=== PATIENT | male | born 1940 | race Caucasian/White ===

== ENCOUNTER 2016-09-25 18:50 | Emergency (ER) | payer OTHER ==
[~2016-09-25] VITALS: Ht 167.6 cm; Wt 73.8 kg
[~2016-09-25 18:50] MED LIST: ASPEC81 PO; CLB200 PO; CYAN100020 PO; HYDR-5688 PO
[2016-09-25 19:01] VITALS: Ht 167.6 cm; Wt 73.8 kg
[2016-09-25] MEDS ORDERED: SODIUM CHLORIDE 0.9% 1000ML 500 ML IV STA (19:31)
[2016-09-25] MEDS ORDERED: ONDANSETRON INJ 2 MG/ML 2 ML VIAL IV STA (19:31)
--- NOTE | 2016-09-25 20:00 | DIAGNOSTIC IMAGING REPORT ---
CHEST ONE VIEW PORTABLE CLINICAL HISTORY: Altered mental status. Weakness. COMPARISON STUDY: No previous studies for comparison. FINDINGS: The cardiac and mediastinal contours are normal. There is no evidence of focal pulmonary consolidation. There is no evidence of failure. No pleural effusions are visualized.[ IMPRESSION: No active disease in the chest. Electronically signed by: Edison Mahoney M.D. 09/25/2016 7:59 PM Dictated Date/Time: 09/25/2016 7:58 PM
--- NOTE | 2016-09-25 20:01 | DIAGNOSTIC IMAGING REPORT ---
PELVIS 1 OR 2 VIEW ROUTINE CLINICAL HISTORY: Hip pain. COMPARISON STUDY: 05/13/2015 FINDINGS: There is a total left hip arthroplasty. There is a small amount of heterotopic ossification present. There are mild to moderate degenerative changes in the right hip. There are no acute fractures or dislocations. Degenerative changes are present within the SI joints. IMPRESSION: Postsurgical change. No acute fractures. Degenerative change. Electronically signed by: Edison Mahoney M.D. 09/25/2016 8:00 PM Dictated Date/Time: 09/25/2016 7:59 PM
[2016-09-25 20:15] LABS: BASO % 0.1 %; BASO ABS # 0.01 K/uL (0-0.2); COMPLETE YES; EOS % 0.1 %; HEMATOCRIT 49.8 % (42-52); IG% 0.2 %; LYMPH % 20.3 %; LYMPH ABS # 1.76 K/uL (1.2-3.4); MEAN CELL VOLUME 92.9 fL (80-100); MEAN CORPUSCULAR HEMOGLOBIN 32.1 pg (25-34); MEAN CORPUSCULAR HGB CONC 34.5 g/dl (32-36); MEAN PLATELET VOLUME 9.9 fL (7.4-10.4); MONO % 3.6 %; NEUT % 75.7 %; PLATELET COUNT 288 K/uL (130-400); RED BLOOD COUNT 5.36 M/uL (4.7-6.1); WHITE BLOOD COUNT 8.67 K/uL (4.8-10.8)
--- NOTE | 2016-09-25 20:40 | DIAGNOSTIC IMAGING REPORT ---
CT HEAD WITHOUT CONTRAST (CT) CLINICAL HISTORY: Altered mental status. Weakness. COMPARISON STUDY: No previous studies for comparison. TECHNIQUE: Axial CT of the brain is performed from the vertex to the skull base. IV contrast was not administered for this examination. CT DOSE: 537.48 mGy.cm FINDINGS: No intra or extra-axial mass lesions are visualized. There is no CT evidence of acute cortical infarction. There is no evidence of midline shift. There is no acute hemorrhage. No calvarial fractures are visualized. There are patchy white matter hypodensities likely on a small vessel basis. There is no evidence of pathologic ventricular dilatation. There is no evidence of acute sinusitis IMPRESSION: No acute intracranial findings Electronically signed by: Edison Mahoney M.D. 09/25/2016 8:39 PM Dictated Date/Time: 09/25/2016 8:38 PM
[2016-09-25 21:24] LABS: ALB/GLOB RATIO 1.3 (0.9-2); ALKALINE PHOSPHATASE 66 U/L (45-117); ALT/SGPT 36 U/L (12-78); AST/SGOT 29 U/L (15-37); BLOOD UREA NITROGEN 16 mg/dl (7-18); BUN/CREATININE RATIO 17.1 (10-20); CALCIUM 9.2 mg/dl (8.5-10.1); CARBON DIOXIDE 29 mmol/L (21-32); CHLORIDE 106 mmol/L (98-107); CREATININE 0.95 mg/dl (0.60-1.40); GLUCOSE 111 mg/dl (70-99); MAGNESIUM 2.2 mg/dl (1.8-2.4); POTASSIUM 4.7 mmol/L (3.5-5.1); SODIUM 142 mmol/L (136-145)
--- NOTE | 2016-09-25 21:24 | EMERGENCY ROOM VISIT NOTE ---
History Report prepared by Eduard: Georgie Orozco Under the Supervision of: Dr. Oniel Head M.D. First contact with patient: 19:19 Chief Complaint: NAUSEA Stated Complaint: WEAKNESS,NAUSEA, DIFFICULTY WALKING History of Present Illness The patient is a 75 year old male who presents to the Emergency Room with complaints of persistent leg tightness starting 4 days ago. He woke up at 0200 to use the bathroom and found he was unable to walk for 15 minutes. He had the same symptoms again 2 days ago and again today. He is normally a very active person who works out regularly. For the last 2 months, he has had some difficulty walking at times. He feels woozy and his legs get tight from his knees up to his hips. This makes it difficult for him to walk. It has happened more often the past 4 days. He reports nausea which has caused him to eat less. He denies any headache, fever, cough, SOB, chest pain, diarrhea, or urinary symptoms. He is not having any problems with his upper extremities. He denies any fall or injury. Source of History: patient Onset: 4 days ago Position: leg (bilateral) Quality: other (tightness) Timing: other (persistent) Associated Symptoms: + nausea, No SOB, No chest pain, No cough, No diarrhea , No fevers, No headache, No urinary symptoms Note: Pt reports feeling woozy, difficulty walking. Review of Systems See HPI for pertinent positives & negatives. A total of 10 systems reviewed and were otherwise negative. Past Medical & Surgical Medical Problems: (1) Abdominal pain (2) Arthritis of left hip (3) Hypopotassemia (4) Pancreatitis (5) Pancreatitis (6) Spondylisthesis Surgical Problems: (1) S/P hip replacement Family History Cancer Social History Smoking Status: Former Smoker Alcohol Use: none Marital Status: Housing Status: lives with family Occupation Status: retired Current/Historical Medications Scheduled Ondasetron Odt (Zofran Odt), 4 MG SL Q6H Allergies Coded Allergies: No Known Allergies (Unverified , 09/25/16) Physical Exam Vital Signs Date Time Temp Pulse Resp B/P Pulse Ox O2 Delivery O2 Flow Rate FiO2 09/25/16 22:30 36.3 59 18 141/83 97 09/25/16 19:01 36.3 55 20 173/91 99 Room Air Physical Exam GENERAL: Patient is in no acute distress. HEENT: No acute trauma, normocephalic atraumatic, mucous membranes moist, no nasal congestion, no scleral icterus. NECK: No stridor, no adenopathy, no meningismus, trachea is midline. LUNGS: Clear to auscultation bilaterally, no wheeze, no rhonchi, breath sounds equal. HEART: Without murmurs gallops or rubs, regular rate and rhythm. ABDOMEN: Soft, nontender, bowel sounds positive, no hernias, no peritonitis. EXTREMITIES: No cyanosis or edema, full range of motion of all the joints without pain or difficulty, no signs for acute trauma. NEUROLOGIC: Oriented x 3, no acute motor or sensory deficits, no focal weakness. 2/4 patellar reflexes bilaterally, no cerebellar deficits or pronator drift. SKIN: No rash, no jaundice, no diaphoresis. Medical Decision & Procedures ER Provider Diagnostic Interpretation: X ray results and stated below per my interpretation and radiologist interpretation. Other radiology results and stated below per my review and radiologist interpretation: CHEST ONE VIEW PORTABLE CLINICAL HISTORY: Altered mental status. Weakness. COMPARISON STUDY: No previous studies for comparison. FINDINGS: The cardiac and mediastinal contours are normal. There is no evidence of focal pulmonary consolidation. There is no evidence of failure. No pleural effusions are visualized.[ IMPRESSION: No active disease in the chest. Electronically signed by: Edison Mahoney M.D. 09/25/2016 7:59 PM Dictated Date/Time: 09/25/2016 7:58 PM PELVIS 1 OR 2 VIEW ROUTINE CLINICAL HISTORY: Hip pain. COMPARISON STUDY: 05/13/2015 FINDINGS: There is a total left hip arthroplasty. There is a small amount of heterotopic ossification present. There are mild to moderate degenerative changes in the right hip. There are no acute fractures or dislocations. Degenerative changes are present within the SI joints. IMPRESSION: Postsurgical change. No acute fractures. Degenerative change. Electronically signed by: Edison Mahoney M.D. 09/25/2016 8:00 PM Dictated Date/Time: 09/25/2016 7:[address] HEAD WITHOUT CONTRAST (CT) CLINICAL HISTORY: Altered mental status. Weakness. COMPARISON STUDY: No previous studies for comparison. TECHNIQUE: Axial CT of the brain is performed from the vertex to the skull base. IV contrast was not administered for this examination. CT DOSE: 537.48 mGy.cm FINDINGS: No intra or extra-axial mass lesions are visualized. There is no CT evidence of acute cortical infarction. There is no evidence of midline shift. There is no acute hemorrhage. No calvarial fractures are visualized. There are patchy white matter hypodensities likely on a small vessel basis. There is no evidence of pathologic ventricular dilatation. There is no evidence of acute sinusitis IMPRESSION: No acute intracranial findings Electronically signed by: Edison Mahoney M.D. 09/25/2016 8:39 PM Dictated Date/Time: 09/25/2016 8:38 PM Laboratory Results 09/25/16 19:55 Red Blood Count 5.36, Mean Corpuscular Volume 92.9, Mean Corpuscular Hemoglobin 32.1, Mean Corpuscular Hemoglobin Concent 34.5, Mean Platelet Volume 9.9, Neutrophils (%) (Auto) 75.7, Lymphocytes (%) (Auto) 20.3, Monocytes (%) (Auto) 3.6, Eosinophils (%) (Auto) 0.1, Basophils (%) (Auto) 0.1, Neutrophils # (Auto) 6.56, Lymphocytes # (Auto) 1.76, Monocytes # (Auto) 0.31, Eosinophils # (Auto) 0.01, Basophils # (Auto) 0.01 09/25/16 19:55 Test 09/25/16 19:55 09/25/16 21:30 White Blood Count 8.67 K/uL (4.8-10.8) Red Blood Count 5.36 M/uL (4.7-6.1) Hemoglobin 17.2 g/dL (14.0-18.0) Hematocrit 49.8 % (42-52) Mean Corpuscular Volume 92.9 fL (80-100) Mean Corpuscular Hemoglobin 32.1 pg (25-34) Mean Corpuscular Hemoglobin Concent 34.5 g/dl (32-36) Platelet Count 288 K/uL (130-400) Mean Platelet Volume 9.9 fL (7.4-10.4) Neutrophils (%) (Auto) 75.7 % Lymphocytes (%) (Auto) 20.3 % Monocytes (%) (Auto) 3.6 % Eosinophils (%) (Auto) 0.1 % Basophils (%) (Auto) 0.1 % Neutrophils # (Auto) 6.56 K/uL (1.4-6.5) Lymphocytes # (Auto) 1.76 K/uL (1.2-3.4) Monocytes # (Auto) 0.31 K/uL (0.11-0.59) Eosinophils # (Auto) 0.01 K/uL (0-0.5) Basophils # (Auto) 0.01 K/uL (0-0.2) RDW Standard Deviation 42.8 fL (36.4-46.3) RDW Coefficient of Variation 12.5 % (11.5-14.5) Immature Granulocyte % (Auto) 0.2 % Immature Granulocyte # (Auto) 0.02 K/uL (0.00-0.02) Anion Gap 7.0 mmol/L (3-11) Est Creatinine Clear Calc Drug Dose 61.5 ml/min Estimated GFR () 91.0 Estimated GFR (Non- 78.5 BUN/Creatinine Ratio 17.1 (10-20) Calcium Level 9.2 mg/dl (8.5-10.1) Magnesium Level 2.2 mg/dl (1.8-2.4) Total Bilirubin 0.7 mg/dl (0.2-1) Aspartate Amino Transf (AST/SGOT) 29 U/L (15-37) Alanine Aminotransferase (ALT/SGPT) 36 U/L (12-78) Alkaline Phosphatase 66 U/L (45-117) Total Creatine Kinase 140 U/L (39-308) Troponin I < 0.015 ng/ml (0-0.045) Total Protein 7.9 gm/dl (6.4-8.2) Albumin 4.4 gm/dl (3.4-5.0) Globulin 3.5 gm/dl (2.5-4.0) Albumin/Globulin Ratio 1.3 (0.9-2) Thyroid Stimulating Hormone (TSH) 1.990 uIu/ml (0.300-4.500) Chemistry Specimen Hemolysis Urine Color YELLOW Urine Appearance CLOUDY (CLEAR) Urine pH 8.5 (4.5-7.5) Urine Specific [place] 1.012 (1.000-1.030) Urine Protein NEG (NEG) Urine Glucose (UA) NEG (NEG) Urine Ketones NEG (NEG) Urine Occult Blood NEG (NEG) Urine Nitrite NEG (NEG) Urine Bilirubin NEG (NEG) Urine Urobilinogen NEG (NEG) Urine Leukocyte Esterase TRACE (NEG) Urine WBC (Auto) 1-5 /hpf (0-5) Urine RBC (Auto) 0-4 /hpf (0-4) Urine Hyaline Casts (Auto) 0 /lpf (0-5) Urine Epithelial Cells (Auto) 5-10 /lpf (0-5) Urine Bacteria (Auto) NEG (NEG) Urine dip is negative for infection or blood. Laboratory results reviewed by me. Medications Administered Medications (Trade) Dose Ordered Sig/Ant Route Start Time Stop Time Status Last Admin Dose Admin Sodium Chloride (Nss 1000ml) 500 ml @ 999 mls/hr Q31M STAT IV 09/25/16 19:31 09/25/16 20:01 DC 09/25/16 19:31 999 MLS/HR Ondansetron HCl (Zofran Inj) 4 mg NOW STAT IV 09/25/16 19:31 09/25/16 19:33 DC 09/25/16 20:04 4 MG Ondansetron HCl (ZOFRAN ODT 4MG Home Pack) 1 homepack UD ONCE PO 09/25/16 22:15 09/25/16 22:16 DC 09/25/16 22:15 1 HOMEPACK ECG Indication: nausea Rate (beats per minute): 57 Rhythm: sinus bradycardia Findings: 1st degree AV block, no acute ischemic change, no ectopy ED Course 1924: The patient was evaluated in room A10. A complete history and physical exam was performed. 1930: Zofran Inj 4 mg IV, NSS 500 ml @ 999 mls/hr IV. 2147: I reevaluated the patient. He is resting comfortably. I discussed the results and treatment plan with. He is happy to know the results of his tests. The human services case manager will set up rehab for him next week. He verbalized understanding and agreement. He will be discharged home. 2214: Ondansetron HCl 1 homepack PO. Medical Decision Differential diagnoses: dehydration, electrolyte imbalance, anemia, thyroid disorder, cardiac ischemia, UTI, stroke. There is no leukocytosis or concerning anemia. No significant electrolyte abnormality, kidney failure, hepatitis. The patient appears to be in a euthyroid state. Pelvis film shows no fracture or issues with the left hip prosthesis. Chest x-ray does not show pneumonia or CHF. EKG shows a sinus bradycardia, no acute ischemia. Cardiac enzyme testing times one is not consistent with acute cardiac injury. Brain CT shows no acute bleed or mass effect. Urinalysis does not show evidence for infection. The patient received IV saline, IV Zofran, he is doing well. On exam, there is no evidence for focal neurologic deficit. He seems to be walking well. His reflexes are intact in the lower extremities. I did have case management talk with the patient. They are setting up physical rehabilitation for him. He needs some guidance on how to exercise and likely needs some stretching. The patient was given Zofran for nausea, he was encouraged to rest and not to overdo it for the next couple days. He may be exercising too much in fact. Patient was encouraged to return here if worsening. Impression Primary Impression: Nausea Additional Impression: Weakness Scribe Attestation The scribe's documentation has been prepared under my direction and personally reviewed by me in its entirety. I confirm that the note above accurately reflects all work, treatment, procedures, and medical decision making performed by me. Departure Information Dispostion Home / Self-Care Prescriptions Ondasetron Odt (ZOFRAN ODT) 4 Mg Tab 4 MG SL Q6H for Nausea, #12 TAB Prov: Oniel Head M.D. 09/25/16 Referrals Aimee Shelley C.R.NAlfonzoPAlfonzo (PCP) Forms HOME CARE DOCUMENTATION FORM, IMPORTANT VISIT INFORMATION Patient Instructions [facility] Additional Instructions consider rehab as discussed--the human services case manager here has helped arrange this lab testing today was all ok stay well hydrated and rest return if worsening take it easy for a few days as we discussed use zofran 1 tab every 6 hours as needed for nausea lab testing and imaging today was all ok Problem Qualifiers
[2016-09-25 21:56] LABS: URINE APPEARANCE CLOUDY (CLEAR); URINE BILIRUBIN NEG (NEG); URINE COLOR YELLOW; URINE NITRITE NEG (NEG); URINE PH 8.5 (4.5-7.5); URINE SPECIFIC GRAVITY 1.012 (1.000-1.030); UROBILINOGEN NEG (NEG); ZZUR CULT IF INDIC CLEAN CATCH NO
[2016-09-25 21:57] LABS: MANUAL MICROSCOPIC REQUIRED? NO; REVIEW REQ? NO
[2016-09-25] MEDS ORDERED: ONDA4TAB10 SL (22:00)
[2016-09-25] MEDS ORDERED: ONDANSETRON HOME PACK 4MG OD TAB PO ONE (22:15)
[2016-09-25 22:30] VITALS: BP 141/83; PULSE 59; TEMP 36.3; O2SAT 97
== END 2016-09-25 22:31 | disposition home or self-care (01) ==
LOC: C.EDB 18:52 → C.EDA 22:31
DX: R53.1 Weakness (principal); R11.0 Nausea; I44.0 Atrioventricular block, first degree; K86.1 Other chronic pancreatitis; M16.12 Unilateral primary osteoarthritis, left hip; Z96.649 Presence of unspecified artificial hip joint; Z87.891 Personal history of nicotine dependence; Z80.9 Family history of malignant neoplasm, unspecified

== ENCOUNTER 2016-10-29 19:16 | Emergency (ER) | payer OTHER ==
[~2016-10-29] VITALS: Ht 167.6 cm; Wt 74.7 kg
[~2016-10-29 19:16] MED LIST changes: -ASPEC81 PO; -CLB200 PO; -CYAN100020 PO; -HYDR-5688 PO; +ONDA4TAB10 SL
[2016-10-29 19:18] VITALS: Ht 167.6 cm; Wt 74.7 kg
[2016-10-29] MEDS ORDERED: LIDOCAINE/EPINEPHRINE 1% 20 ML VIAL INFIL ONE (19:45)
--- NOTE | 2016-10-29 19:51 | EMERGENCY ROOM VISIT NOTE ---
ED Visit Note First contact with patient: 19:45 This Patient was discussed with the physician benefits assistant, Magali Shannon PA-C. The pertinent historical and physical exam findings were confirmed. I agree with the studies ordered and with the interpretations of these studies. I agree with the disposition and care plan.
[2016-10-29] MEDS ORDERED: DIPHTHERIA/TETANUS/PERTUSSIS 0.5 ML SYR/VIAL IM. ONE (20:00)
[2016-10-29] MEDS ORDERED: CIPR-255 PO (20:23)
--- NOTE | 2016-10-29 20:25 | EMERGENCY ROOM VISIT NOTE ---
ED Visit Note First contact with patient: 19:36 CHIEF COMPLAINT: Right foot puncture wound. HISTORY OF PRESENT ILLNESS: This 75-year-old male patient presents to the emergency department approximately 3 hours after stepping on a nail and receiving a puncture wound to the right foot. Patient states she was walking, and stepped on a marie wood board, which had a nail running through it. He was wearing sneakers and states the nail punctured through his sneaker, sock, and foot. He states the nail was "very long". Patient states the nail was very deep into the foot. The bleeding has stopped. Denies weakness or numbness of the right foot, toes, ankle. The patient rates the pain as burning and 3/10. The patient denies any other injuries. The patient's Tetanus shot is not up to date. REVIEW OF SYSTEMS: A 6 system review of systems was completed with positives and pertinent negatives listed in the HPI. ALLERGIES: None MEDICATIONS: None PMH: None SOCIAL HISTORY: Pt. lives locally with his family. He denies alcohol, drug, tobacco use. PHYSICAL EXAM: Vital Signs: Reviewed Nurse's notes, vital signs stable. GENERAL : 75-year-old male, in no acute distress, well-developed, well-nourished. SKIN : There is a 0.5 cm long puncture wound on the plantar aspect of the foot. The edges gape apart with traction. There is no foreign material in the wound and it looks clean. There is no active bleeding. No deep structures such as tendons , bones, or significant blood vessels are seen in the base of the wound. Normal strength and movement of the bright foot, toes, ankle. Capillary refill less than 2 seconds. Normal sensation to light and sharp touch. EMERGENCY DEPARTMENT COURSE: I examined the patient. Verbal consent was obtained to perform the procedure. Using sterile technique the wound was cleansed with Betadine. The area was sterilely draped. 2 ml of 1% buffered lidocaine with epinephrine was used to anesthetize the puncture wound on the plantar aspect of right foot. Once the patient was anesthetized, the wound was copiously irrigated under pressure with sterile saline. The wound was explored and was as described above. The laceration was repaired using 1 simple interrupted 4-0 nylon sutures with the wound edges being well approximated. The patient tolerated the procedure well. Hemostasis was achieved. The area was cleaned with sterile saline and dressed with bacitracin ointment and bandage. The patient was given Tdap immunization. The patient was discharged home in good condition. DIAGNOSIS: Right foot puncture wound DISCHARGE INSTRUCTIONS & TREATMENT: Keep wound clean and dry. Do not allow any crusting or dried blood to accumulate on sutures. If this occurs, use a 1:1 solution of hydrogen peroxide/water on a Q-tip to clean the wound. Use an antibiotic ointment for 3-4 days, then let wound dry. Suture removal in 12-14 days. Return sooner for any signs of infection (increasing redness, swelling, drainage). Ice and elevate for swelling and pain. Ibuprofen 600 mg and Tylenol 1000 mg every 6 hrs for pain. Keep covered when in sun until sutures removed then SPF 50 or higher for one year. Vitamin E oil if desired two weeks after suture removal for reduction of scar. Problem List Medical Problems: (1) Abdominal pain Status: Resolved (2) Hypopotassemia Status: Resolved (3) Pancreatitis Status: Resolved (4) Pancreatitis Status: Resolved (5) Spondylisthesis Status: Chronic Surgical Problems: (1) S/P hip replacement Status: Resolved Current/Historical Medications Scheduled Ciprofloxacin Hcl (Cipro), 500 MG PO BID Allergies Coded Allergies: No Known Allergies (Unverified , 10/29/16) Vital Signs Date Time Temp Pulse Resp B/P (MAP) Pulse Ox O2 Delivery O2 Flow Rate FiO2 10/29/16 20:14 69 18 155/82 96 Room Air 10/29/16 19:18 36.7 74 20 164/80 97 Room Air Medications Administered Medications (Trade) Dose Ordered Sig/Ant Route Start Time Stop Time Status Last Admin Dose Admin Diphtheria/ Pertussis/Tetanus Vacc (Adacel Inj) 0.5 ml ONCE ONCE IM. 10/29/16 20:00 10/29/16 20:01 DC 10/29/16 20:13 0.5 ML Departure Information Impression Primary Impression: Puncture wound of foot without foreign body Dispostion Home / Self-Care Condition GOOD Prescriptions Ciprofloxacin Hcl (CIPRO) 500 Mg Tab 500 MG PO BID for 10 Days, #20 TAB Prov: Magali Shannon PA-C 10/29/16 Referrals Aimee Shelley C.R.N.PAlfonzo (PCP) Patient Instructions My [facility] Additional Instructions You have received 1 suture on your right foot. These sutures are NOT dissolvable and WILL need to be removed by a health care provider in 12-14 days. You can return to the Emergency Department or contact your Primary Care Provider to have the sutures removed. You also received a tetanus vaccination today. You may experience some localized redness, swelling, discomfort from the vaccination. If he experienced high fever, increased redness, swelling, severe pain, he should follow up in the emergency department for further evaluation. Proper wound care is essential for adequate wound healing and infection prevention. You can shower and clean the wound with soap and water. Do not scour over the wound, pat dry with a towel. Do not submerse the wound (i.e. bathe or dish wash) until the sutures have been removed. You can use an antibiotic ointment with a dressing over the wound for the next 3-4 days. After this time you may leave the wound dry and open to the air. If crust develops over the wound you can use a Q-tip to apply a 1:1 peroxide:water solution to clean the wound. Look for signs of infection of the wound including: increased pain, swelling, foul discharge, streaking, or increased temperature. If any of these are noticed you should return to the Emergency Department for further assessment and treatment. As with any laceration you may have received nerve damage to the surrounding tissues. This damage may or may not be permanent. Please try to avoid walking on her foot as much as possible while the suture remains. You should keep the area covered with sunscreen for the first 6 months to 1 year when at risk for exposure to help minimize scarring. You can also use scar reducing creams or Vitamin E oil to help minimize scarring. For pain control, you can use the following [id number] medicines (if >12 yo): - Regular strength (325mg/tab) Tylenol (acetaminophen) 2 tabs every 4-6 hours as needed. Do not exceed 12 tablets in a 24 hour period. Avoid taking more than 4 grams (4000 mg) of Tylenol per day. This includes any other sources of acetaminophen you may take on a regular basis. - Regular strength (200 mg/tab) Advil (ibuprofen) 1-2 tabs every 4-6 hours as needed. Do not exceed a dose of 3200 mg per day. Return to the emergency department if your symptoms worsen despite treatment course outlined above. You were prescribed ciprofloxacin to be taken twice daily. This is an antibiotic. All antibiotics have the potential to cause diarrhea. Stop this medication and contact a medical provider if you were to develop any significant adverse side effects including: wheezing, shortness of breath, passing out, vomiting, or a diffuse rash. Always take antibiotics as directed and COMPLETE the ENTIRE course regardless of the improvement of your symptoms. Problem Qualifiers Primary Impression: Puncture wound of foot without foreign body Encounter type: initial encounter Laterality: right Qualified Codes: S91.331A - Puncture wound without foreign body, right foot, initial encounter
[2016-10-29 20:54] VITALS: BP 156/99; PULSE 72; TEMP 36.7; O2SAT 97
== END 2016-10-29 20:56 | disposition home or self-care (01) ==
LOC: C.EDB 19:17 → C.EDD 20:56
DX: S91.331A Puncture wound without foreign body, right foot, initial encounter (principal); Z23 Encounter for immunization; Z87.19 Personal history of other diseases of the digestive system; W45.0XXA Nail entering through skin, initial encounter

== ENCOUNTER 2016-11-12 14:23 | Emergency (ER) | payer OTHER ==
[~2016-11-12] VITALS: Ht 167.6 cm; Wt 74.9 kg
[~2016-11-12 14:23] MED LIST changes: +CIPR-255 PO; -ONDA4TAB10 SL
[2016-11-12 14:25] VITALS: Ht 167.6 cm; Wt 74.9 kg
[2016-11-12] MEDS ORDERED: MULT1TAB18 PO (14:46)
[2016-11-12] MEDS ORDERED: CYAN10005 PO (14:46)
--- NOTE | 2016-11-12 14:54 | EMERGENCY ROOM VISIT NOTE ---
ED Visit Note First contact with patient: 14:40 CHIEF COMPLAINT: Suture removal This patient returns to the ED today for removal of sutures that were placed 14 days ago. There has been no swelling, redness, or drainage from the wound. The patient feels like the laceration is healing well. He denies fevers or chills. REVIEW OF SYSTEMS: Head: No headache, injury or neck pain. Skin: No rash, new lesions, or masses. General: No fever or chills, fatigue, loss of appetite , or significant recent weight gain or loss. PMH: The patient is healthy; there is no significant medical or surgical history. SOCIAL HISTORY: Patient lives at home. PHYSICAL EXAM: Vital Signs: Reviewed Nurse's notes. There is a sutured wound on the plantar aspect of the right foot with no signs of infection. There is no erythema, swelling, or tenderness. EMERGENCY DEPARTMENT COURSE: The single suture was removed without any difficulty and there was no separation of the wound edges. Patient tolerated the procedure well. Problem List Medical Problems: (1) Abdominal pain Status: Resolved (2) Hypopotassemia Status: Resolved (3) Pancreatitis Status: Resolved (4) Pancreatitis Status: Resolved (5) Spondylisthesis Status: Chronic Surgical Problems: (1) S/P hip replacement Status: Resolved Current/Historical Medications Scheduled Cyanocobalamin (Vitamin B-12), 1,000 MCG PO DAILY Multiple Vitamins W/ Minerals (One Daily For Men 50+ Adv), 1 TAB PO DAILY Allergies Coded Allergies: No Known Allergies (Unverified , 10/29/16) Vital Signs Date Time Temp Pulse Resp B/P (MAP) Pulse Ox O2 Delivery O2 Flow Rate FiO2 11/12/16 15:03 36.8 75 18 97 11/12/16 14:25 36.8 75 18 97 Room Air Departure Information Impression Primary Impression: Encounter for removal of sutures Dispostion Home / Self-Care Condition GOOD Referrals No Doctor, Assigned (PCP) Patient Instructions ED Wound Check Sutr Remove No Infec, My [facility] Additional Instructions Wash any remaining crusts off of the wound today and resume your normal activities. You may try applying mole skin to the scar on your foot to help reduce discomfort with walking. Follow-up with your PCP as needed.
[2016-11-12 15:03] VITALS: PULSE 75; TEMP 36.8; O2SAT 97
== END 2016-11-12 15:03 | disposition home or self-care (01) ==
LOC: C.EDB 14:24 → C.EDA 15:03
DX: Z48.02 Encounter for removal of sutures (principal); K86.1 Other chronic pancreatitis; Z96.649 Presence of unspecified artificial hip joint

== ENCOUNTER 2022-08-13 07:09 | Observation (INO) ==
--- NOTE | 2022-08-12 13:08 | Anesthesiology Consultation ---
Date of Service August 12, 2022 Assessment & Plan (1) Encounter for pre-operative examination: - Pt scheduled for admission post-operatively. Plan for COVID Guerrier AM DOS due to possibility that patient may have a roommate. OR aware. Guerrier order placed. - COVID screening: Per assessment on 08/12: No known COVID-19 positive contacts or current COVID-19 related symptoms. Travel screen negative. At surgeon discretion if preop Covid testing being done. -Outpatient joint assessment: Pt currently scheduled for inpatient pathway. If surgeon requests review for outpatient joint pathway, patient is not recommended candidate for outpatient joint program from anesthesia standpoint. Chart Review Chart Review: Acceptable Risk for Surgery and Patient NOT seen in Pre Admission Testing History Surgery Operation Date: 08/13/22 09:10 Proposed Procedures p Right Total Knee Arthroplasty - Bunny Freeman MD Height/Weight Height: 5 ft 6 in Weight: 68.039 kg Allergies Allergy/AdvReac Type Severity Reaction Status Date / Time No Known Allergies Allergy Verified 08/12/22 12:57 Medications Home Medications Medication Instructions Recorded Confirmed Last Taken multivitamin 1 tab PO QAM 05/07/20 08/12/22 05/07/20 B12 1 tab PO BID 07/17/22 08/12/22 Unknown Past Medical History Medical History Osteoarthritis Past Family History Family History Other No family history of adverse response to anesthesia Past Surgical History Surgical History History of esophagogastroduodenoscopy (EGD) History of tonsillectomy S/P hip replacement R/L Social History Smoking Status: Former smoker tobacco type: cigarettes Do You Dip or Chew Tobacco: No Hx Alcohol Use: No Hx Substance Use: No substance use type: does not use Lab Results Anesthesia Preop Results Results Anesthesia Widget: WBC 5.85 K/ul (4.8-10.8) 07/17/22 Hgb 14.4 g/dl (14.0-18.0) 07/17/22 Hct 41.6 % (42.0-52.0) L 07/17/22 Plt 266 K/uL (130-400) 07/17/22 Na 141 mmol/L (136-145) 07/17/22 K 3.8 mmol/L (3.5-5.1) 07/17/22 Cl 109 mmol/L (98-107) H 07/17/22 CO2 28 mmol/L (21-32) 07/17/22 BUN 15 mg/dl (6-23) 07/17/22 Creat 0.88 mg/dl (0.6-1.4) 07/17/22 Glucose Level 93 mg/dl (70-99(Fasting)) 07/17/22 PT 10.9 Seconds (9.0-12.0) 07/17/22 PTT 27.2 Seconds (21.0-31.0) 07/17/22 INR 1.0 (0.9-1.1) 07/17/22 Urine Color Dark Yellow 07/17/22 Urine Appearance Clear (Clear) 07/17/22 Urine pH 6.0 (4.5-7.5) 07/17/22 Urine Specific Hague 1.020 (1.000-1.030) 07/17/22 Urine Protein Negative (Negative) 07/17/22 Urine Glucose (UA) Negative (Negative) 07/17/22 Urine Ketones Negative (Negative) 07/17/22 Urine Blood Negative (Negative) 07/17/22 Urine Nitrite Negative (Negative) 07/17/22 Urine Bilirubin Negative (Negative) 07/17/22 Urine Urobilinogen Negative (Negative) 07/17/22 Urine Leukocyte Esterase Negative (Negative) 07/17/22 SARS-CoV-2, RNA, NAAT NEGATIVE (NEGATIVE) 08/12/22 Blood Type O Positive 07/17/22 Antibody Screen NEGATIVE 07/17/22 Testing Electrocardiogram Date: 11/27/21 SR with first degree AVB at 65bpm. Chest X-Ray Date: 11/27/21 Findings: + NAD
[~2022-08-13 07:09] MED LIST changes: +ACETAMINOPHEN 500 MG TAB PO SCH; +BUPIVACAINE 0.5 % 5 MG/1 ML PF 10ML VIAL ONE; -CIPR-255 PO; +CeleBREX 200 MG CAP PO SCH; +EPINEPHrine INJ 1 MG/ML AMP ONE; +FAMOTIDINE 20 MG TAB PO SCH; +GABAPENTIN 300 MG CAP PO SCH; +LR 500ML BOLUS, THEN 15ML/HR IV SCH; +METOCLOPRAMIDE HCL 10 MG TABLET PO SCH; +ROPIVACAINE 0.5% 5 MG/ML 30 ML VIAL ONE; +ROPIVACAINE 0.5% HCL/PF 150 MG, BUPIVACAINE 0.75% MPF 20 ML, EPINEPHrine 30MG/30ML (OR ... INSTIL SCH; +TRANEXAMIC ACID 1,000 MG **IV Intra-op IV SCH; +TRANEXAMIC ACID 1,000 MG **IV Pre-op IV SCH; +ceFAZolin 2000MG 2,000 MG/15 ML SYR IV SCH; +dexAMETHasone 4 MG TAB PO SCH
[2022-08-13] MEDS ORDERED: ONDANSETRON INJ 2 MG/ML 2 ML VIAL ONE (07:49)
[2022-08-13] MEDS ORDERED: LIDOCAINE 2% MPF LOCAL 5 ML VIAL ONE (07:49)
[2022-08-13] MEDS ORDERED: MIDAZOLAM HCL 1 MG/ML 2ML VIAL ONE (07:49)
[2022-08-13] MEDS ORDERED: PROPOFOL IV EMULSION 10 MG/ML 20 ML VIAL IV ONE (07:49)
--- NOTE | 2022-08-13 07:53 | History & Physical Bridge Note ---
Date of Service August 13, 2022 History & Physical Bridge Note I have examined the patient, reviewed the History & Physical and in the interval since the performance of the History & Physical I have noted the following changes of clinical significance: Patient has a localized rash medial lateral ankle and left forearm areas consistent with some type of contact dermatitis no signs of infection.
[2022-08-13] MEDS ORDERED: ORTHO JOINT ANESTHETIC ONE (09:50)
[2022-08-13] MEDS ORDERED: ePHEDrine sulfate 50 MG/ML SYR ONE (10:42)
[2022-08-13] MEDS ORDERED: ePHEDrine sulfate 50 MG/ML AMP IV PRN (11:54)
[2022-08-13] MEDS ORDERED: ATROPINE SULFATE 0.1 MG/ML 10ML SYR IV PRN (11:54)
[2022-08-13] MEDS ORDERED: fentaNYL citrate PF 100 MCG/2 ML VIAL ONE (12:14)
--- NOTE | 2022-08-13 12:16 | Operative Report ---
Post Operative Report Pre & Post Diagnosis Operation Date: 08/13/22 09:10 Pre-Op Diagnosis: Right Knee Osteoarthritis, history of insufficiency fracture tibia and medial meniscus tear Post-Op Diagnosis: Right Knee Osteoarthritis, history insufficiency fracture tibia and medial meniscus tear I identified the patient and participated in the time-out.: Yes Procedure Operation Date: 08/13/22 09:10 Actual Procedures p Right Total Knee Arthroplasty(Right), chandni and Acticoat superficial wound VAC- Bunny Freeman MD Surgeon Bunny Freeman MD Rubber Mold Maker Carlos HARRINGTON Estimated Blood Loss 5 Findings Consistent with Post-Op Diagnosis Specimens Bone cuts Drains 2 Hemovac Anesthesia Type MAC Spinal Regional Complications none Disposition Disposition: Recovery Room Indications 81-year-old male with progressive osteoarthritis in his right knee. Initially patient had insufficiency fracture of the tibia and medial meniscus tear and went on to progressive osteoarthritis over time. He was treated conservatively initially. Radiographs demonstrates [id number] on flexion views now. He has patellofemoral and medial compartment OA. Description of Procedure Patient was taken to the operating room placed supine on the operating table and anesthetized under spinal MAC regional block anesthesia. Exam under anesthesia demonstrated varus knee with some pseudolaxity no effusion and full range of motion 0 through 130 degrees. A pneumatic tourniquet was placed about the thigh of the right lower extremity. The right lower extremity was prepped and draped in usual sterile fashion. The leg was elevated exsanguinated with an Esmarch bandage and the pneumatic tourniquet was raised to 300 mm mercury. An anterior incision was made across the right knee. The skin was incised longitudinally subcutaneous flaps were elevated and an incision was made through the medial retinaculum extending up into the mid third of the quadriceps tendon and extended down to the medial tibial tubercle. Intra-articular findings demonstrated grade 4 medial compartment osteoarthritis with grade 3 patellofemoral osteoarthritis. The tibial bone was solid. Bone quality was very solid throughout the whole knee. There was a large radial tear of the medial meniscus with a displaced fragment into the medial gutter with a radial tear extending completely through the meniscus out to the MCL. The knee was exposed by excising the infrapatellar fat pad, excising the medial meniscus tear and a lateral meniscus and anterior cruciate ligament. Any inflamed synovial tissue was resected. The fat pad over the anterior femur was resected for placement of the component in that area. The lateral synovial bands were release. The femur was exposed. The custom femoral cutting block was pinned in position. The distal femoral cutting block was applied. The distal femoral cut was made with the oscillating saw. The size 9, 4-in-1 cutting block was placed. The anterior and posterior chamfer cuts were made. The knee was extended and a subperiosteal peel lateral release was performed around the patella. The patella width was measured and width was reproduced using freehand cut technique. The 32 x 8.5 millimeter symmetrical patella was used. 3 drill holes are made for the pegs. The tibia was exposed. A custom tibial cutting block was positioned and drill holes were made for the cutting guide. Cutting guide was placed and the proximal cut was made with the oscillating saw. All osteophytes were resected. The lamina welding inspector was used to assess ligamentous balance and the ligaments were balanced in extension and flexion. No releases were required. The tibia was reexposed and measured for a size F tibial component. This was externally rotated in line with the tibial tubercle and the fixation pins were drilled. The proximal tibia was fashioned with the drill and punch. The size 9 CR femoral trial was inserted. The trial MC inserts were used. The 10 mm insert gave balanced ligaments through full range of motion. The patella tracked centrally. the trials were removed. The orthomix anesthetic cocktail was injected per protocol. The knee was then copiously irrigated with pulsatile lavage saline solution. The final components were cemented with Refobacin bone cement. The final components were David persona right 9 standard CR femoral component capital right F tibial component, right 10 MC tibial polyethylene and a 32 x 8.5 mm symmetrical polyethylene patella. After the cement cured with the knee in full extension the Betadine soak was used per protocol. The knee joint was copiously irrigated with pulsatile lavage saline solution . 2 drains were brought out laterally and connected to a Hemovac. The quadriceps tendon and medial retinaculum were closed with interrupted [id number] #1 Vicryl sutures. The knee was taken through a full range of motion which was 0 through 130 degrees and the repair was secure. The subcutaneous tissues were closed with 2-0 Vicryl sutures and skin was closed with camille.A Chandni and Acticoat superficial wound VAC was applied and the p atient tolerated the procedure well. Carlos HARRINGTON my physician teachers assistant participated as list of first job ideas and was an integral part in all aspects of the procedure, he assisted in soft tissue retraction, instrument management ,leg positioning, the closure, application of the superficial wound VAC and will participate in the postoperative care of the patient. Jordin HARRINGTON was also assisted in the procedure assisted in soft tissue retraction and wound closure and dressing application wound VAC application and postoperative care. I attest to the content of the Intraoperative Record and any orders documented therein. Any exceptions are noted below.
--- NOTE | 2022-08-13 13:10 | Anesthesiology Progress Note ---
Date of Service August 13, 2022 Anesthesia Post Procedure Vital Signs Vital Signs: Temp Pulse Pulse Resp BP Pulse Ox O2 Del Method 08/13/22 13:00 36.4 C L 63 18 135/81 94 Room Air 08/13/22 12:50 80 16 117/75 97 Oxymask 08/13/22 12:40 72 14 125/76 98 Oxymask 08/13/22 12:33 36.3 C L 72 12 122/75 98 Oxymask 08/13/22 08:20 36.6 C 66 20 156/95 H 97 Room Air O2 Flow Rate 08/13/22 13:00 08/13/22 12:50 5 08/13/22 12:40 8 08/13/22 12:33 11 08/13/22 08:20 Transfer of Care Handoff Completed per policy Notes Mental Status: alert / awake / arousable Patient Amnestic to Procedure: Yes Nausea / Vomiting: adequately controlled Pain: adequately controlled Airway Patency, RR, SpO2: stable & adequate BP & HR: stable & adequate Hydration State: stable & adequate Neuraxial Anesthesia: was administered and sensory block is resolving Anesthetic Complications: no major complications apparent
[2022-08-13] MEDS ORDERED: oxyCODONE HCL IR 5 MG TAB (IMMEDIATE RELEASE) PO PRN (13:31)
[2022-08-13] MEDS ORDERED: MAGNESIUM HYDROXIDE SUSP 30 ML UDC PO PRN (13:31)
[2022-08-13] MEDS ORDERED: METOCLOPRAMIDE HCL INJ 5 MG/ML 2 ML VIAL IV PRN (13:31)
[2022-08-13] MEDS ORDERED: HYDROmorphone INJ 0.5 MG/0.5 ML SYR IV PRN (13:31)
[2022-08-13] MEDS ORDERED: ONDANSETRON INJ 2 MG/ML 2 ML VIAL IV PRN (13:31)
[2022-08-13] MEDS ORDERED: bisacodyL 10 MG SUPP PR PRN (13:31)
[2022-08-13] MEDS ORDERED: NALOXONE HCL 0.4 MG/1 ML VIAL/CARP IV PRN (13:31)
[2022-08-13] MEDS ORDERED: SODIUM CHLORIDE 0.9% 1000ML 1,000 ML IV SCH (13:31)
--- NOTE | 2022-08-13 13:46 | XRay Report ---
RIGHT KNEE 2 VIEWS History: Right total knee arthroplasty. Degenerative arthritis. Postop. FINDINGS: The patient is status post a right total knee arthroplasty. The hardware is intact. No frac ture or dislocation. Skin camille and surgical drains are in place. IMPRESSION: Right total knee arthroplasty. No evidence for hardware complication. ACT 112: Negative or not required by law. Electronically signed by: Joe Sanz M.D. 08/13/2022 1:44 PM
[2022-08-13] MEDS: ACETAMINOPHEN 500 MG TAB PO SCH (15:39)
--- NOTE | 2022-08-13 16:08 | Hospitalist Consultation ---
Date of Consultation August 13, 2022 Assessment & Plan (1) Status post total right knee replacement: -Pain control, perioperative abx, and DVT PPX per the primary team -Will stop his IV fluids at this time as he is stable and able to eat/drink, would want to avoid volume overload at his age -Adding daily famotidine for ulcer PPX while on aspirin and celebrex -Agree with AM CBC and BMP, we will review -Thank you for allowing us to participate in the care of this patient, please reach out will any questions or concerns (2) HTN (hypertension): -Patient noted to be hypertensive with a systolic BP in the 150's-160's post-op -Could be related to his pain/discomfort post-op -Would continue to monitor for now, could consider starting an antihypertensive tomorrow if he is still hypertensive with pain well-controlled Plan The patient was discussed with Dr. Beck at the time of the consult Supervising Physician Co-Signing Physician Notes I personally saw and examined the patient. I verified all iqbal points and agree with Jamal Cardoza PA-C with the following exceptions and/or additions: No acute or chronic medical needs identified No acute medical concerns or questions from the patient A&Ox3 HS1+2, no murmurs, Chest CTAB, Abdo SNT History of Present Illness Reason for Consultation: Post-op medical management Requesting Physician: Bunny Freeman MD Attending Physician: Dr. Gurdeep Beck History of Present Illness Ismael is an 81 year old male with a PMH significant for OA and B12 deficiency who presented to the [facility] OR on 08/13/22 for elective Right Total Knee Arthroplasty with Dr. Freeman. Review of the patient's vitals since arrival show him to be afebrile, mildly hypertensive with systolic blood pressures in the 150-160's, and stable on RA. Per the operative report, there were no reported intraoperative complications listed, EBL was listed as 5 cc, and anesthesia was listed as "MAC Spinal Regional". At the time of the exam the patient was sitting comfortably in bed in no acute distress. He states he is feeling well post-op and has no complaints. He has sensation in his RLE but his pain is currently well-controlled. He confirmed that he is only on B12 and a multivitamin at home. He denies a previous history of HTN, DM, Hyperlipidemia, pulmonary disease. He does not have ESPERANZA or us HS CPAP/Bipap. He was able to eat lunch after arriving to his room without complication. Please refer to Dr. Beck's attestation for any changes to the treatment plan. Allergies Allergy/AdvReac Type Severity Reaction Status Date / Time No Known Allergies Allergy Verified 08/13/22 07:37 Home Medications Medication Instructions Recorded Confirmed Type multivitamin 1 tab PO QAM 05/07/20 08/12/22 History B12 1 tab PO BID 07/17/22 08/12/22 History Patient History Medical History Osteoarthritis Surgical History History of esophagogastroduodenoscopy (EGD) History of tonsillectomy S/P hip replacement R/L Family History Other No family history of adverse response to anesthesia Social History Smoking Status: Former smoker Second Hand Exposure: No; Do You Dip or Chew Tobacco: No; Tobacco Cessation Education Requested by Patient: No Hx Alcohol Use: No Hx Substance Use: No Preferred Language: Moldovan Communication Ability: Effective Post Acute Care Nurse Practitioner Required: No Beliefs That Will Affect Care: None Current Living Situation: Family Current Living Situation Comment: lives with Ismael lara Other Information That Helps Us Care for You: No Feels Safe at Home: Yes Safety Concerns: Feels Safe At This Time Assistive Devices: Brace/Splint/Immobilizer, Cane and Glasses Review of Systems Review of Systems: Denies current fever, chills, headache, changes in vision, hearing, taste, and smell, chest pain, SOB, cough, abdominal pain, nausea, vomiting, diarrhea, hematemesis, melena, dysuria, hematuria, and recent falls. All systems have been reviewed and are otherwise negative. Physical Exam Physical Exam: Physical Exam: General: In no acute distress, stated age, well-nourished, good hygiene HEENT: Normocephalic, atraumatic, no scleral icterus, pupils around round, symmetrical, and reactive to light, moist mucus membranes, trachea midline, no thyromegaly Chest/Pulm: No respiratory distress, symmetrical chest expansion, clear breath sounds throughout Cardiac: RRR, no murmurs noted Abdomen: Negative for ascites and bruising, normoactive bowel sounds, soft, non-tender to palpation throughout Musculoskeletal: RLE currently wrapped, with drain in place and BL SCD's in place, intact sensation and motor function in BL LE's Extremities: Radial, dorsalis pedis, and posterior tibial pulses are intact and symmetrical, no edema noted in the BL LE's Skin: Warm, dry, no rashes , lesions, or scars noted Neuro: Alert and oriented to person, place, month, year, and president, no focal defects, no tremors noted Psych: No acute distress, calm and cooperative during the exam Results & Data Results & Data Vital Signs (Past 12 Hours) Vital Signs Temp Pulse Pulse Pulse Resp BP Pulse Ox 08/13/22 15:40 36.3 C L 71 16 161/84 H 96 08/13/22 14:11 36.7 C 75 18 168/82 H 93 08/13/22 13:30 36.4 C L 60 16 159/80 H 16 L 08/13/22 13:10 67 20 124/73 94 08/13/22 13:00 36.4 C L 63 18 135/81 94 08/13/22 12:50 80 16 117/75 97 08/13/22 12:40 72 14 125/76 98 08/13/22 12:33 36.3 C L 72 12 122/75 98 08/13/22 08:20 36.6 C 66 20 156/95 H 97 O2 Del Method O2 Flow Rate 08/13/22 15:40 Room Air 08/13/22 14:11 Room Air 08/13/22 13:30 Room Air 08/13/22 13:10 Room Air 08/13/22 13:00 Room Air 08/13/22 12:50 Oxymask 5 08/13/22 12:40 Oxymask 8 08/13/22 12:33 Oxymask 11 08/13/22 08:20 Room Air Diagnostic Findings Knee X-Ray 08/13/22 12:36 RIGHT KNEE 2 VIEWS History: Right total knee arthroplasty. Degenerative arthritis. Postop. FINDINGS: The patient is status post a right total knee arthroplasty. The hardware is intact. No fracture or dislocation. Skin camille and surgical drains are in place. IMPRESSION: Right total knee arthroplasty. No evidence for hardware complication. ACT 112: Negative or not required by law. Electronically signed by: Joe Sanz M.D. 08/13/2022 1:44 PM ECG Additional Comments: No ECG available at the time of the consult PG Care Time/CCT Total # of Minutes Spent Total Time Spent with Patient: Total time spent is greater than 50% in coordination of care (as documented) at patient's floor/unit and/or counseling patient: [place] [address] IN/OBS CONSULT LVL 2,35M Patient Type Established Medical Decision Making Moderate Complexity Diagnoses Status post total right knee replacement Z96.651 HTN (hypertension) I10
[2022-08-13] MEDS: ceFAZolin 1000MG 1,000 MG/7.5 ML SYR IV SCH (17:44)
[2022-08-13] MEDS: CeleBREX 200 MG CAP PO SCH (20:18)
[2022-08-13] MEDS: DOCUSATE SODIUM 100 MG CAP PO SCH (20:18)
[2022-08-13] MEDS: CYANOCOBALAMIN (B-12) 100 MCG TABLET PO SCH (20:19)
[2022-08-13] MEDS: ASPIRIN 81 MG ECTAB PO SCH (20:19)
[2022-08-13] MEDS ORDERED: SENNA 8.6 MG TAB PO SCH (21:00)
[2022-08-14] MEDS: ACETAMINOPHEN 500 MG TAB PO SCH ×2 (01:54→08:34)
[2022-08-14] MEDS: ceFAZolin 1000MG 1,000 MG/7.5 ML SYR IV SCH (02:11)
[2022-08-14 07:22] LABS: Hematocrit (blood only) 37.7 % (42.0-52.0); Hemoglobin 13.3 g/dl (14.0-18.0); Mean Corpuscular Hemoglobin 32.6 pg (25.0-34.0); Mean Corpuscular Hgb Conc 35.3 g/dL (32.0-36.0); Mean Corpuscular Volume 92.4 fL (80.0-100.0); Mean Platelet Volume 9.8 fL (9.4-12.4); Platelet Count 249 K/uL (130-400); RDW Coefficient of Variation 12.4 % (11.5-14.5); RDW Standard Deviation 42.1 fL (36.4-46.3); Red Blood Count 4.08 M/uL (4.70-6.10); White Blood Count 22.44 K/ul (4.8-10.8)
[2022-08-14 07:35] LABS: BUN Creatinine Ratio 21.6 (10-20); Calcium 8.5 mg/dl (8.6-10.3); Creatinine Clr Calc Pharmacy 52.1 ml/min; Est GFR (African American) 80.1 ml/min; Est GFR (Non-African American) 69.1 ml/min; Potassium 4.5 mmol/L (3.5-5.1)
[2022-08-14] MEDS: CeleBREX 200 MG CAP PO SCH (08:34)
[2022-08-14] MEDS: DOCUSATE SODIUM 100 MG CAP PO SCH (08:34)
[2022-08-14] MEDS: ASPIRIN 81 MG ECTAB PO SCH (08:34)
[2022-08-14] MEDS: CYANOCOBALAMIN (B-12) 100 MCG TABLET PO SCH (08:34)
[2022-08-14] MEDS ORDERED: FAMOTIDINE 20 MG TAB PO SCH (09:00)
[2022-08-14] MEDS ORDERED: NON-FORMULARY MEDICATION (Multivitamin Tablet) PO SCH (09:00)
[2022-08-14] MEDS ORDERED: MULTIVITAMIN TAB PO SCH (09:00)
--- NOTE | 2022-08-14 09:55 | Orthopedic Progress Note ---
Date of Service August 14, 2022 Assessment & Plan (1) Primary osteoarthritis of right knee: Plan Pt is POD #1 s/p Right TKA -Pain regime as written -DVT ppx with ASA 81mg PO BID, TEDs and SCDs -PT/OT -Hemovac drain may be d/c and dressing change per nursing staff -Pt is stable from an orthopedic standpoint to be discharged home today. He has outpatient PT scheduled to start Wednesday. Admission and Anticipated Discharge Date Admission Date: August 13, 2022 Subjective Pt is POD #1 s/p Right TKA -Doing well this morning, sitting up in chair eating breakfast and has no complaints -States pain is well controlled at this time -Hemovac with minimal drainage over the past shift of only 55cc over last shift -WBC elevated this morning, however likely secondary to surgery, pt asymptomatic at this time. -Denies CP, SOB, abdominal pain, fevers or chills Review of Systems Review of Systems: All systems reviewed & are unremarkable except as noted in Subjective Physical Exam Physical Exam: RLE with dressing and drain in place, area is c/d/i. Drain with minimal output appreciated. Calf is nontender and soft. Able to wiggle toes without issue, full ROM of ankle, NVI. Distal perfusion and sensation grossly intact. Results & Data Vital Signs (Past 12 Hours) Vital Signs Temp Pulse Pulse Resp BP BP Pulse Ox 08/14/22 07:56 36.8 C 61 16 119/57 L 95 08/14/22 03:47 36.7 C 64 16 126/45 L 94 08/13/22 22:55 36.5 C 66 18 137/67 93 O2 Del Method 08/14/22 07:56 Room Air 08/14/22 03:47 Room Air 08/13/22 22:55 Room Air Laboratory Results Laboratory Results WBC 22.44 K/ul (4.8-10.8) H 08/14/22 06:55 RBC 4.08 M/uL (4.70-6.10) L 08/14/22 06:55 Hgb 13.3 g/dl (14.0-18.0) L 08/14/22 06:55 Hct 37.7 % (42.0-52.0) L 08/14/22 06:55 MCV 92.4 fL (80.0-100.0) 08/14/22 06:55 MCH 32.6 pg (25.0-34.0) 08/14/22 06:55 MCHC 35.3 g/dL (32.0-36.0) 08/14/22 06:55 RDW Std Deviation 42.1 fL (36.4-46.3) 08/14/22 06:55 RDW Coeff of Yogi 12.4 % (11.5-14.5) 08/14/22 06:55 Plt Count 249 K/uL (130-400) 08/14/22 06:55 MPV 9.8 fL (9.4-12.4) 08/14/22 06:55 Sodium 138 mmol/L (136-145) 08/14/22 06:55 Potassium 4.5 mmol/L (3.5-5.1) 08/14/22 06:55 Chloride 107 mmol/L (98-107) 08/14/22 06:55 Carbon Dioxide 26 mmol/L (21-32) 08/14/22 06:55 Anion Gap 5 (3-11) 08/14/22 06:55 BUN 22 mg/dl (6-23) 08/14/22 06:55 Creatinine 1.02 mg/dl (0.6-1.4) 08/14/22 06:55 Est Cr Clr Drug Dosing 52.1 ml/min 08/14/22 06:55 Est GFR ( Amer) 80.1 ml/min 08/14/22 06:55 Est GFR (Non-Af Amer) 69.1 ml/min 08/14/22 06:55 BUN/Creatinine Ratio 21.6 (10-20) H 08/14/22 06:55 Glucose 156 mg/dl (70-99(Fasting)) H 08/14/22 06:55 Calcium 8.5 mg/dl (8.6-10.3) L 08/14/22 06:55 SARS-CoV-2, RNA, NAAT NEGATIVE (NEGATIVE) 08/13/22 Unknown Impressions Knee X-Ray 08/13/22 12:36 RIGHT KNEE 2 VIEWS History: Right total knee arthroplasty. Degenerative arthritis. Postop. FINDINGS: The patient is status post a right total knee arthroplasty. The hardware is intact. No fracture or dislocation. Skin camille and surgical drains are in place. IMPRESSION: Right total knee arthroplasty. No evidence for hardware complication. ACT 112: Negative or not required by law. Electronically signed by: Joe Sanz M.D. 08/13/2022 1:44 PM
--- NOTE | 2022-08-14 15:38 | Discharge Summary ---
Date of Service August 14, 2022 Admission HPI Per Admitting Provider 81-year-old male with no significant past medical history presents with ongoing right knee pain. Pain is interfering with his daily activities. He has failed conservative measures. He would like to proceed with surgical intervention. Patient denies headaches, sweats, fevers, chills, double vision, blurred vision, cough, sore throat, dysphagia, chest pain, sob, wheezing, n/v/d/c, numbness, tingling, fatigue, urinary symptoms, mood disorders. ROS positive for right knee pain and stiffness. Admission Exam Per Admitting Provider Constitutional: well developed and well nourished; no acute distress Eyes: PERRL, conjunctivae normal, anicteric sclerae ENMT: external ear and nose normal, oropharynx normal Neck: trachea midline, no thyromegaly Respiratory: normal respiratory effort, lungs clear to auscultation Cardiovascular: RRR, no murmur, no edema Musculoskeletal: Right knee: Varus alignment. Tenderness medial joint line. Stable to valgus and varus stress test. Range of motion 0 to 130 degrees. Skin: no rashes, warm and dry Neurologic: patellar DTR's 2+ bilat, sensation intact Psychiatric: A+Ox3, euthymic affect Principal Diagnosis Right knee osteoarthritis Discharge Exam RLE with dressing and drain in place, area is c/d/i. Drain with minimal output appreciated. Calf is nontender and soft. Able to wiggle toes without issue, full ROM of ankle, NVI. Distal perfusion and sensation grossly intact. Discharge Data Allergies Allergy/AdvReac Type Severity Reaction Status Date / Time No Known Allergies Allergy Verified 08/13/22 07:37 Consultations 08/12/22 14:11 Consult Hospitalist Routine Procedures Performed Operation Date: 08/13/22 09:10 Actual Procedures p Right Total Knee Arthroplasty(Right) - Bunny Freeman MD Ordered Studies 08/13/22 05:00 US - OR guided needle placemen Routine Hospital Course (1) Primary osteoarthritis of right knee: Pt is POD #1 s/p Right TKA -Pain regime as written -DVT ppx with ASA 81mg PO BID, TEDs and SCDs -PT/OT -Hemovac drain may be d/c and dressing change per nursing staff -Pt is stable from an orthopedic standpoint to be discharged home today. He has outpatient PT scheduled to start Wednesday. Lab Results 08/13/22 08/14/22 08/14/22 Range/Units Unknown 06:55 06:55 WBC 22.44 H (4.8-10.8) K/ul RBC 4.08 L (4.70-6.10) M/uL Hgb 13.3 L (14.0-18.0) g/dl Hct 37.7 L (42.0-52.0) % MCV 92.4 (80.0-100.0) fL MCH 32.6 (25.0-34.0) pg MCHC 35.3 (32.0-36.0) g/dL RDW Std Deviation 42.1 (36.4-46.3) fL RDW Coeff of Yogi 12.4 (11.5-14.5) % Plt Count 249 (130-400) K/uL MPV 9.8 (9.4-12.4) fL Sodium 138 (136-145) mmol/L Potassium 4.5 (3.5-5.1) mmol/L Chloride 107 (98-107) mmol/L Carbon Dioxide 26 (21-32) mmol/L Anion Gap 5 (3-11) BUN 22 (6-23) mg/dl Creatinine 1.02 (0.6-1.4) mg/dl Est Cr Clr Drug Dosing 52.1 ml/min Est GFR ( Amer) 80.1 ml/min Est GFR (Non-Af Amer) 69.1 ml/min BUN/Creatinine Ratio 21.6 H (10-20) Glucose 156 H (70-99(Fasting)) mg/dl Calcium 8.5 L (8.6-10.3) mg/dl SARS-CoV-2, RNA, NAAT NEGATIVE (NEGATIVE) Plan Lab Results 08/13/22 08/14/22 08/14/22 Range/Units Unknown 06:55 06:55 WBC 22.44 H (4.8-10.8) K/ul RBC 4.08 L (4.70-6.10) M/uL Hgb 13.3 L (14.0-18.0) g/dl Hct 37.7 L (42.0-52.0) % MCV 92.4 (80.0-100.0) fL MCH 32.6 (25.0-34.0) pg MCHC 35.3 (32.0-36.0) g/dL RDW Std Deviation 42.1 (36.4-46.3) fL RDW Coeff of Yogi 12.4 (11.5-14.5) % Plt Count 249 (130-400) K/uL MPV 9.8 (9.4-12.4) fL Sodium 138 (136-145) mmol/L Potassium 4.5 (3.5-5.1) mmol/L Chloride 107 (98-107) mmol/L Carbon Dioxide 26 (21-32) mmol/L Anion Gap 5 (3-11) BUN 22 (6-23) mg/dl Creatinine 1.02 (0.6-1.4) mg/dl Est Cr Clr Drug Dosing 52.1 ml/min Est GFR ( Amer) 80.1 ml/min Est GFR (Non-Af Amer) 69.1 ml/min BUN/Creatinine Ratio 21.6 H (10-20) Glucose 156 H (70-99(Fasting)) mg/dl Calcium 8.5 L (8.6-10.3) mg/dl SARS-CoV-2, RNA, NAAT NEGATIVE (NEGATIVE) Total Time Total Time Spent Total Time Spent (In Minutes): 20 Discharge Plan Discharge Items Patient Disposition: Home - Home Health Services Reason For Visit: Right Knee Osteoarthritis Discharge Diagnosis: Right knee osteoarthritis Activity: Per Instructions section Non-emergency contact: Surgeon Call non-emergency contact if: your pain is not controlled, your temperature is above 101.5, your wound has increased redness, your wound has increased drainage and your wound pain has increased Follow-up/Referrals: Bunny Freeman MD [Surgeon] - (f/u with Dr. Freeman or his PA Ismael in 2 weeks for your post-operative check up ) Iliana Ribeiro PA-C [Primary Care Provider] - Diet: Regular Addtl Attending Provider Instructions: ACTIVITY RECOMMENDATIONS: SELF CARE INSTRUCTIONS AFTER TOTAL KNEE REPLACEMENT A. You may need to continue a physical therapy program after discharge from the hospital. There are several options available to you. Your doctor will assist you in selecting the best one for you. 1. An out-patient facility 2 to 3 times a week for therapy or home therapy. 2. Continue working on all exercises taught to you in the hospital. Your goals should be to increase bending of your knee to 90 degrees and beyond and to fully straighten your knee. B. You may progress at your own pace from walking with a walker or crutches to a cane; then to no assistive devices. C. Make walking a part of your daily routine. Be up as much as comfortable with rest periods throughout the day. Rest with leg elevation is very important. Use the ice wrap frequently for the first 3-4 weeks. D. There are no restrictions on activities. You may ride in a car, shop, participate in dermatological surgeon and all social activities. E. Wear the long elastic stockings (VALARIE hose) 20 hours a day for 2 weeks after surgery. They can be removed several times a day for laundering and for a bath. F. You may shower, no tub baths until cleared by your doctor. SPECIAL CARE INSTRUCTIONS: VERY IMPORTANT TO READ AND REVIEW A. There are a few signs you need to watch for after you are home. Call [facility] if you notice any of the followin. Increased severe knee pain. Some pain is expected especially when you exercise. 2. Increased swelling in your leg or knee; pain or swelling of the calf muscle in either lower leg. 3. Any fluid drainage from the incision. 4. Shortness of breath or chest pain. B. Please call [facility] at if you have any concerns or questions about your operation or recovery. The doctor or his nurse will return your call promptly. C. You must take antibiotics before dental work, bladder, bowel or other surgery. Your doctor will provide you with a permanent care to carry describing this precaution. IMPORTANT: * REMEMBER TO TAKE ASPIRIN 81MG , TWICE DAILY FOR 4 WEEKS UNLESS OTHERWISE DIRECTED. THIS IS YOUR BLOOD THINNER. * CALL IF INCREASED PAIN, REDNESS, DRAINAGE OR FEVER GREATER THAT 101. * WEAR VALARIE HOSE 20 HOURS PER DAY FOR 2 WEEKS. * LEELA Dressing - This is a large suction dressing covering your incision. This will help pull any excess drainage from the wound and allow your incision to heal properly. You may shower with this if you can keep the unit outside of the shower. If any bleeding or leakage is noted please call your doctor's office. This will remain on your incision for 7 days and then should be removed. This can be done yourself or by the home nursing staff if applicable. The entire unit is disposable once removed. Once removed, keep incision clean and dry. If redness or drainage is noted, please call your surgeon at . FOLLOW UP VISIT: If appointment is not already scheduled: Please call [facility] to make a follow-up appointment for 2 weeks after your surgery at . Pending Studies at Discharge: No Stand-Alone Forms: My [facility], Smoking Cessation Medications and DC Order Prescriptions: New aspirin 81 mg tablet,delayed release (DR/EC) 81 mg PO BID Qty: 60 0RF acetaminophen 500 mg tablet 1,000 mg PO Q8H Qty: 60 0RF cefadroxil 500 mg capsule 500 mg PO BID Qty: 28 0RF celecoxib [Celebrex] 200 mg capsule 200 mg PO BID Qty: 60 0RF oxycodone 5 mg tablet 5 - 10 mg PO .Q4h-6h MDD 6 PRN (Reason: pain) Qty: 30 0RF Rx Instructions: Ongoing therapy, Dr. Freeman supervising Continued multivitamin Tablet 1 tab PO QAM B12 1 tab PO BID Admission Data Admit Date/Time: 08/13/22 12:36 Attending Provider: Bunny Freeman Admit Provider: Bunny Freeman Primary Care Provider: Iliana Ribeiro Other Providers: Gurdeep Latham ; Chuck,Home Health Other Interventions: Discharge Summary Assessment (RN) Last Done: 08/14/22 10:28
== END 2022-08-14 13:44 | disposition home health service (06) ==
LOC: ASU 07:09 → 3N 07:09